=== PATIENT | male | born 1965 | race Caucasian/White ===

== ENCOUNTER → 2018-01-02 | Day surgery (SDC) | payer OTHER ==
[~2018-01-02] VITALS: Ht 182.9 cm; Wt 87.2 kg
[~2018-01-02] MED LIST: AMPICILLIN/SULBAC 3 GM/NS 100 ML IV PRN; ASPI-516 CHEW; CHLORHEXIDINE GLUCONATE 2 % 1 PACK (2 CLOTHS) TOPICAL PRN; DAPA1TAB3 PO; DIAZ10TA PO; GEMF600T PO; GLIM4TAB PO; INSU1INJ14 SQ; LACTATED RINGER'S 1000 ML IV PRN; LANS30CA PO; LEVO25TA4 PO; LEXA5TAB PO; LIDOCAINE 1%/EPINEPHrine 1:100,000 SOLN 30 ML VIAL ONE; METF500T PO; METOPROLOL TARTRATE 25 MG TAB PO PRN; MIDAZOLAM HCL 2 MG/2 ML VIAL ONE; MORPHINE SULFATE 4 MG/ML INJ ONE; NO ITAB PO; OMEP20TA93 PO; OXYMETAZOLINE HCL 0.05% 15 ML NASAL SPRAY ONE; POVIDONE IODINE 5% (ANTISEPSIS KIT) 4 APPLICATIONS EACH NARE PRN; SODIUM CHLORID 0.9% 500 ML IV PRN; diabetic medication; fentaNYL CITRATE 250 MCG/5 ML AMP ONE
[2018-01-02 16:40] VITALS: BP 152/85; PULSE 58; RESP 16; TEMP 97.7; O2SAT 94
--- NOTE | 2018-01-13 19:34 | MP ---
cc: Ted Cristobal MD, James M MD DATE OF OPERATION: 01/02/2018 SURGEON: Dr. Ted Cristobal. PREOPERATIVE DIAGNOSES: 1. Chronic pansinusitis. 2. Nasoseptal deviation. 3. Hypertrophied inferior turbinates. 4. Chronic sinus headache. POSTOPERATIVE DIAGNOSES: 1. Chronic pansinusitis. 2. Nasoseptal deviation. 3. Hypertrophied inferior turbinates. 4. Chronic sinus headache. OPERATION PERFORMED: 1. Septoplasty. 2. Bilateral submucosal resection of inferior turbinates. 3. Bilateral endoscopic total ethmoidectomy. 4. Bilateral maxillary antrostomy with removal of maxillary sinus tissue. 5. Bilateral endoscopic exploration of frontal sinus ducts. 6. Bilateral endoscopic sphenoidotomy with removal of sphenoid sinus tissue. INDICATIONS: Documented in the history and physical. DETAILS OF PROCEDURE: The patient was taken to OR #2 and placed in the supine position. After induction of general anesthesia and intubation, the nose was packed bilaterally with cotton pledgets saturated in 0.05% oxymetazoline. The septal mucosa and inferior turbinates were injected with a total of 10 mL of 1% Xylocaine with epinephrine 1:100,000. He was then prepped and draped for surgery. Nasal packing was removed and a hemitransfixion was made in the left nasal vestibule. Through this incision, the septal mucosa was elevated bilaterally as far as the rostrum of the sphenoid. Following this, a 2 x 2 cm segment of the quadrangular cartilage was removed using a Sherman elevator and Jr-Allen forceps preserving 1.5 cm dorsal and caudal cartilaginous struts. When this was completed, the bony septum was removed using Jr-Allen forceps and a [place] septal forceps. The maxillary crest was removed using a 6 mm Hua chisel, taking care to preserve the anterior nasal spine. The incision was then closed using a running suture of 4-0 chromic and the mucosal layers of septum were approximated to each other with a quilting stitch of 4-0 plain gut. The inferior turbinates were addressed next. They were fractured out medially and stab incisions were made along their inferior surfaces. Through these incisions, the submucosal soft tissue was reduced using a curette and preserving the conchal bone. The incisions were then cauterized using the suction Bovie at 35 mg and the remnants of the inferior turbinates were then relateralized to the lateral nasal wall. From this point forward, the operation was performed using endoscopic visualization with a Storz 0-degree fiberoptic scope. Additional 10 mL of lidocaine and epinephrine injection was made in the attachments of the middle turbinates, as well as into the uncinate processes and the anterior and posterior ethmoid cells bilaterally. The left side was addressed first beginning with amputation of the middle turbinate using Thru-Cutting Blakesley forceps and the power microdebrider. This was followed by removal of the uncinate process. This exposed the ethmoid bulla, which was bluntly penetrated and the anterior and posterior cells were exonerated using blunt and powered dissection. This was carried back as far as the rostrum of the sphenoid. When this was completed, the maxillary ostium was probed, using a 3 mm olive tipped suction and then the opening was enlarged with Stammberger forceps and the power microdebrider. The cavity was debrided of thick polypoid tissue and mucopurulent material. Next, the sphenoid sinus was addressed. The ostium was probed with a #10 suction and was then enlarged with the powered debrider. Using a 0-degree scope and Blakesley forceps, the sphenoid cavity was then debrided of mucopurulent material and polypoid degenerated mucosa. Lastly on the left side, the frontal sinus duct was addressed using a 70-degree scope, upbiting Blakesley forceps and a curved suction. The agger nasi cells were taken down and the duct was probed and verified patent all the way into the frontal sinus. This side was then irrigated and packed with cotton pledgets saturated with oxymetazoline which remained in place while the right side was operated in the same fashion beginning with the amputation of the middle turbinate, followed by uncinectomy and exenteration of anterior and posterior ethmoids. The maxillary ostium was enlarged with the Stammberger forceps and the power debrider and the cavity was debrided of inflamed mucosa and mucopurulent material. The sphenoid sinus ostium was enlarged and the duct was debrided of its contents and lastly the right frontal duct was probed using blunt dissection and a 70-degree scope and verified patent all the way into the frontal sinus. All the packing was removed. Both sides were then irrigated with chilled saline and were then filled with Stammberger sinus foam in all of the ethmoid and maxillary cells. The inferior one-half of the nose was then filled with 5.5 cm Rapid Rhino packs and each was inflated with 5 mL of air. The procedure was then terminated. The patient was reversed from anesthesia and taken to recovery in good condition. There were no complications. Blood loss was 400 mL. MD AMELIE Nunez//rh , 03:34 PM , 07:00 PM
== END | disposition home or self-care (01) ==
LOC: PHSDC 07:50
PROVIDERS: ATTEND Otolaryngology
DX: J32.4 Chronic pansinusitis (principal); J34.2 Deviated nasal septum; J34.3 Hypertrophy of nasal turbinates; J33.0 Polyp of nasal cavity; E11.9 Type 2 diabetes mellitus without complications; Z79.84 Long term (current) use of oral hypoglycemic drugs
CPT/HCPCS: 00160; 30140; 30520; 31253; 31259; 31267; 82948; 88305; 88311; J0295; J2250; J2270; J3010; J7120